=== PATIENT | male | born 1950 | race Caucasian/White ===

== ENCOUNTER → 2018-07-30 | Outpatient (CLI) | payer OTHER, MEDICARE ==
[~2018-07-30] MED LIST: GADOBUTROL 10 ML VIAL IVP ONE
== END ==
LOC: FIMAGING 09:49
PROVIDERS: ATTEND Internal Medicine
DX: G91.9 Hydrocephalus, unspecified (principal)
CPT/HCPCS: 70553; A9585; 82565-PO